=== PATIENT | female | born 1940 | race Caucasian/White ===

== ENCOUNTER 2018-12-05 16:40 | Emergency (ER) | payer MEDICARE ==
[2018-12-05 16:53] VITALS: BP 117/44
--- OUTSIDE RECORDS SUMMARY | 2018-12-05 17:00 | XMS REPORT | Continuity of Care Document ---
:1940 External Reference #:[id number] Author Name John Pinto Care Team Providers Name Role Phone Trino Weinstein MD Primary Care Physician Unavailable Payers Date Identification Numbers Payment Provider Subscriber Policy Number: [id number] [facility] Yolanda Gonzales Group Name: Medicare [address] [address] PayID: [id number] Attn: [place] [address] Advance Directives Description No Information Available Problems Date Description Provider Status Onset: 07/18/2016 Hyperlipidemia Active Onset: 07/18/2016 Essential hypertension Active Onset: 07/18/2016 Diabetes mellitus Active Onset: 07/18/2016 Gastroesophageal reflux disease Active Onset: 07/18/2016 Aneurysm Active Family History Date Family Member(s) Observation Comments Mother Thyroid Disease Siblings 2 Social History Type Date Description Comments Sex Unknown Marital Status Lives With ETOH Use Denies alcohol use Tobacco Use Start: Unknown End: Patient is a former smoker Recreational Drug Use Denies Drug Use Smoking Status Reviewed: 11/19/18 Patient is a former smoker Allergies, Adverse Reactions, Alerts Date Description Reaction Status Severity Comments 09/05/2018 Penicillins Active 09/05/2018 Pseudoephedrine Active Medications Medication Date Status Form Strength Qnty SIG Indications Ordering Provider Clobetasol 11/11 Active Ointment 0.05% 15uni apply to Trino ts Rt hand 3X [place]ellan weekly osMD Methylprednisolon 11/11 Active TBPK 4mg 1unit use as L20.9 Trino e s directed [place] osMD Betamethasone 10/22 Active Cream 0.05% 30gm use three L20.9 Trino Dipropionate /2019 times a Castellan day until os, clear Fluticasone 07/15 Active Suspension 50mcg/Act 16uni 2 puffs J30.9 Trino Propionate ts each nare Castellan every in os, the morning Levocetirizine 06/23 Active Tablets 5mg 30tab 1 every J30.9 Trino Dihydrochloride s day as Castellan needed os, MD Smith Ellipta 05/21 Active Aerosol 62.5-25mc 30uni 1 J44.9 g/Inh ts inhalation Castellan in the os, morning Albuterol Sulfate 05/21 Active Nebulizer (2.5mg/3M 100un 1 J44.9 L) 0.083% its applicatio Castellan n every 4 os, MD hours as needed Polyethylene 04/19 Active Powder 3350NF 357un 1 scoop m, K59.00 Trino Glycol 335 its w and f Josh casanova MD Glipizide ER 10/18 Active Tablets ER 5mg 90tab 1 by mouth E11.9 24HR s every day Josh casanova MD Ventolin HFA 10/05 Active Aerosol 108(90Bas 16uni 2 puffs J44.9 e) ts every 4 Castellan mcg/Act hours as os, needed Trulicity 10/05 Active Solution 0.75mg/0. 6unit inject E11.9 Pen-Inject 5ML s once a Castellan week (3 os, month supply) Ultram 09/19 Active Tablets 50mg 120ta take 1 M25.519 bs tablets Castellan every 4 os, MD hours along with one 325 mg tylenol as needed for pain Vitamin D3 07/18 Active Capsules 1000Unit 90cap 1 by mouth s every day Josh casanova MD Vitamin B-12 07/18 Active Tablets 1000mcg 30tab 1 by mouth s every day Josh casanova MD Rosuvastatin Active Tablets 20mg 90tab take one s tablet by [place] mouth MD jocelyne every day at supper Preservision Active Capsules Areds 2 1 by mouth Unknown Areds 2 two times per day Aspirin Active Tablets DR 81mg 1 by mouth Unknown / every day Refresh Tears Active Solution 0.5% Unknown /0000 Aquaphor Active Ointment Unknown / Ferrous Sulfate 00 Active Tablets 324(65Fe) Take One Unknown /0000 mg Tablet By Mouth Every Day Lantus Solostar Active Solution 100Unit/M 10 u a day Unknown / Pen-Inject L Glucosamine Active Capsules 500mg 2 tablets Unknown / daily Irbesartan-Hydroc Active Tablets 300-12.5m 1 by mouth Unknown hlorothiazide /0000 g every day by Dr Justin Denavir 07/15 Hx Cream 1% 5unit use every B00.1 s 2 hours Castellan - for 4 days os, 10/22 Omeprazole 03/13 Hx Capsules 20mg 90cap 1 by mouth K21.9 s every day Castellan - os, 10/22 Basaglgenevieve Ivyikchio 08/21 Hx Solution 100Unit/M 3unit 12 u in in E11.21 Pen-Inject L s the Castellan - morning os, 10/22 Eucrisa 01/23 Hx Ointment 2% 60gm use twice L30.9 a day Castellan - daily os, 10/22 Hydrocortisone 11/19 Hx Cream 1% 15uni use twice ts daily for Castellan - 1 week os, 06/04 Toujetitus Rees 11/19 Hx Solution 300Unit/M 4.500 10 u in E11.9 Pen-Inject L units the Castellan - morning os, 08/21 Clobetasol 11/06 Hx Ointment 0.05% 15uni apply to Trino ts hands 3X Castellan - weekly os, 11/19 Incruse Ellipta 10/22 Hx Aerosol 62.5mcg/I 30uni 1 puff J44.9 nh ts daily Castellan - os, 10/22 Spiriva Respimat 10/05 Hx Aerosol 2.5mcg/Ac 4unit 2 puffs J44.9 t s every in Castellan - the os, 10/22 Macrobid 07/24 Hx Capsules 100mg 20cap 1 by mouth N39.0 s twice a Castellan - day os, 09/25 Flovent Diskus 07/18 Hx Aerosol 100mcg/Bl 180un 1 puff ist its twice a Kayellan - day os, 10/05 Cyclobenzaprine Hx Tablets 10mg Take One Unknown HCL /0000 Tablet By - Mouth 09/25 Twice A Day as Needed For Spasms Albuterol Sulfate Hx Nebulizer (2.5mg/3M Inhale The Unknown / L) 0.083% Contents - Of One 09/25 Vial Nebulizer Every 4 To 6 Hours as NE Valsartan-Hydroch Hx Tablets 320-12.5m 90tab take one Trino lorothiazide / g s tablet by [place]ellan - mouth os, 04/[address] Hx Capsules [address] 40mg 90cap Stop This / s Medicine [place]ell[place]ike - MD jocelyne 03/13 Naproxen Hx Tablets 500mg Take One Unknown /0000 Tablet By - Mouth 10/05 Twice Day as Needed For Pain Take With Food Metformin HCL Hx Tablets 850mg 180ta take one Trino / bs tablet by Castellan - mouth os, 10/05 day Prednisone 00 Hx Tablets 20mg 1T PO bid Unknown / - 09/25 Clobetasol Hx Cream 0.05% 15uni apply to Trino Propionate /0000 ts hands 3 Castellan - x's weekly os, 11/06 Ciprofloxacin HCL 00 Hx Tablets 250mg Take One Unknown /0000 Tablet By - Mouth 11/19 Twice Day Glipizide Hx Tablets 5mg take one Unknown /0000 tablet by - mouth 10/21 twice day Immunizations CPT Code Status Date Vaccine Lot # [id number] Given 10/22/2018 Tdap - Tetanus/Diptheria/Acellular [id number] Pertussis [id number] Given 10/22/2018 Pneumococcal Conjugate Vaccine 13 Valent [id number] Prevnar 13 For Intramuscular Use Vital Signs Date Vital Result Comment 11/19/2018 2:53pm Weight 209.00 lb BP Systolic 122 mmHg BP Diastolic 66 mmHg 11/11/2018 2:13pm Weight 206.00 lb BP Systolic 130 mmHg irreg BP Diastolic 66 mmHg irreg 10/22/2018 1:20pm Height 57.5 inches 4'9.50" Weight 207.00 lb Heart Rate 74 /min BP Systolic 134 mmHg BP Diastolic 68 mmHg Respiratory Rate 16 /min O2 % BldC Oximetry 98 % BMI (Body Mass Index) 44.0 kg/m2 07/29/2018 9:32am Height 58 inches Weight 206.00 lb BP Systolic 124 mmHg BP Diastolic 64 mmHg BMI (Body Mass Index) 43.0 kg/m2 07/15/2018 3:38pm Weight 202.00 lb BP Systolic 122 mmHg BP Diastolic 80 mmHg 06/23/2018 2:45pm Weight 205.00 lb BP Systolic 122 mmHg BP Diastolic 62 mmHg 05/21/2018 2:01pm Weight 207.00 lb Heart Rate 64 /min BP Systolic 132 mmHg BP Diastolic 58 mmHg Respiratory Rate 18 /min 04/21/2018 11:01am Weight 204.00 lb BP Systolic 102 mmHg BP Diastolic 60 mmHg 03/13/2018 4:00pm Weight 206.00 lb Heart Rate 64 /min BP Systolic 134 mmHg BP Diastolic 60 mmHg Respiratory Rate 18 /min 01/20/2018 1:31pm Weight 203.00 lb Heart Rate 64 /min BP Systolic 104 mmHg BP Diastolic 54 mmHg Respiratory Rate 18 /min 10/21/2017 1:28pm Height 57.50 inches Weight 200.00 lb Heart Rate 64 /min BP Systolic 132 mmHg BP Diastolic 74 mmHg Respiratory Rate 16 /min BMI (Body Mass Index) 42.5 kg/m2 08/21/2017 3:10pm Weight 200.00 lb BP Systolic 112 mmHg BP Diastolic 56 mmHg 05/28/2017 1:56pm Weight 204.00 lb BP Systolic 114 mmHg BP Diastolic 58 mmHg 04/19/2017 11:09am Weight 200.00 lb BP Systolic 130 mmHg BP Diastolic 68 mmHg 03/28/2017 2:55pm Weight 204.00 lb BP Systolic 110 mmHg BP Diastolic 56 mmHg 02/25/2017 2:46pm Height 57.5 inches Weight 202.00 lb BP Systolic 110 mmHg BP Diastolic 62 mmHg BMI (Body Mass Index) 43.0 kg/m2 01/23/2017 2:43pm Weight 200.00 lb BP Systolic 106 mmHg BP Diastolic 62 mmHg 01/09/2017 3:16pm Weight 200.50 lb BP Systolic 100 mmHg BP Diastolic 66 mmHg 12/03/2016 1:36pm Height 57.50 inches Weight 200.50 lb BP Systolic 130 mmHg BP Diastolic 70 mmHg BMI (Body Mass Index) 42.6 kg/m2 11/19/2016 2:45pm Weight 200.00 lb BP Systolic 152 mmHg BP Diastolic 72 mmHg 10/18/2016 1:04pm Height 57.50 inches Weight 198.00 lb Heart Rate 100 /min BP Systolic 91763 mmHg Respiratory Rate 16 /min Body Temperature 98.5 F BMI (Body Mass Index) 42.1 kg/m2 10/05/2016 10:31am Weight 200.00 lb BP Systolic 112 mmHg BP Diastolic 60 mmHg 09/25/2016 3:34pm BP Systolic 100 mmHg BP Diastolic 60 mmHg Body Temperature 97.8 F 09/19/2016 3:39pm Weight 205.00 lb BP Systolic 144 mmHg BP Diastolic 70 mmHg Body Temperature 98.8 F 07/24/2016 3:15pm Weight 202.00 lb BP Systolic 100 mmHg BP Diastolic 68 mmHg 07/18/2016 2:42pm Height 58.75 inches Weight 198.00 lb BP Systolic 120 mmHg BP Diastolic 76 mmHg BMI (Body Mass Index) 40.3 kg/m2 Results Test Date Facility Test Result H/L Range Note Laboratory test 07/21/2018 N2N/CCD Import Glycohemoglobin 7.7 % High 4.2- 6.3 1, 2 finding (A1c) eAG 174 mg/dL Comprehensive Metabolic Panel 07/21/2018 N2N/CCD Import Alb/Glob 0.7 ratio Albumin 3.2 g/dL Low 3.4-5 Alkaline Phosphatase 116 U/L 45-117 Anion Gap 9 mEq/L 8-16 BUN 32 mg/dL High 7-18 BUN/Creat 22.8 ratio Bilirubin,Total 0.2 mg/dL 0.2-1 Calcium 9.1 mg/dL 8.5-10.1 Carbon Dioxide 23 mmol/L 21-32 Chloride 111 mmol/L High 98-107 Creatinine 1.4 mg/dL High 0.6-1.3 Globulin 4.6 g/dL High 1.9-4.3 Glom Filtration Rate, Estimate 39 mL/min Glucose 156 mg/dL High 74-106 If 47 mL/min 3 Potassium 3.9 mmol/L 3.5-5.1 SGPT/Alt 26 U/L 12-78 Sgot/Ast 20 U/L 15-37 Sodium 143 mmol/L 136-145 Total Protein 7.8 g/dL 6.4-8.2 Microalbumin,Random 07/21/2018 N2N/CCD Import Microalbumin,Urine 27.5 Urine mg/L Laboratory test finding 05/20/2018 N2N/CCD Import Troponin-I < 0.015 4 , 5 ng/mL Laboratory test finding 05/20/2018 N2N/CCD Import Troponin-I < 0.015 6 ng/mL CBS W/Automated Diff 05/20/2018 N2N/CCD Import Bas% 0.2 % 0-1. 1 Baso # 0.02 K/uL 0-0.1 Eo% 3.4 % 0-6.6 Eos # 0.29 K/uL 0-0.5 Hematocrit 35.1 % Low 36-46.1 Hemoglobin 11.3 gm/dL Low 11.6-15.8 Lymph # 1.57 K/uL 1-4 Lymph % 18.5 % Low 20-42 Mean Cell Volume 93.6 fl 80.9-99 Mean Corpuscular HGB 30.1 pg 25.9-32.7 Mean Corpuscular HGB Conc 32.2 g/dL 30.8-34.3 Mean Platelet Volume 11.3 fL 8.9-12.4 [place] # 0.45 K/uL 0.3-0.9 [place] % 5.3 % 4.3-13.2 Neut# 6.16 K/uL 1.8-7 Neut% 72.6 % 40.4-72.8 Platelet Count 195 K/uL 155-360 Red Blood Count 3.75 M/uL Low 3.9-5.4 Red Cell Distri Width %CV 15.3 % High 11.7-14.4 Red Cell Distri Width SD 50.0 fl High 3-47 White Blood Count 8.5 K/uL 3.1-10.7 Comprehensive Metabolic Panel 05/20/2018 N2N/CCD Import Alb/Glob 0.7 ratio Albumin 3.1 g/dL Low 3.4-5 Alkaline Phosphatase 109 U/L 45-117 Anion Gap 7 mEq/L Low 8-16 BUN 33 mg/dL High 7-18 BUN/Creat 23.5 ratio Bilirubin,Total 0.2 mg/dL 0.2-1 Calcium 9.4 mg/dL 8.5-10.1 Carbon Dioxide 26 mmol/L 21-32 Chloride 110 mmol/L High 98-107 Creatinine 1.4 mg/dL High 0.6-1.3 Globulin 4.3 g/dL 1.9-4.3 Glom Filtration Rate, Estimate 39 mL/min Glucose 241 mg/dL High 74-106 If 47 mL/min 7 Potassium 4.0 mmol/L 3.5-5.1 SGPT/Alt 25 U/L 12-78 Sgot/Ast 14 U/L Low 15-37 8 Sodium 143 mmol/L 136-145 Total Protein 7.4 g/dL 6.4-8.2 Laboratory test 04/15/2018 N2N/CCD Import Glycohemoglobin 7.8 % High 4.2- 6.3 9, 10 finding (A1c) Reflex add FT3? Y Reflex add FT4? Y Thyroid Stim Hormone 2.13 uIU/mL 0.3-4.2 eAG 177 mg/dL CBC 04/15/2018 N2N/CCD Import Hematocrit 36.9 % 36-46.1 Hemoglobin 12.2 gm/dL 11.6-15.8 Mean Cell Volume 91.1 fl 80.9-99 Mean Corpuscular HGB 30.1 pg 25.9-32.7 Mean Corpuscular HGB Conc 33.1 g/dL 30.8-34.3 Mean Platelet Volume 11.1 fL 8.9-12.4 Platelet Count 204 K/uL 155-360 Red Blood Count 4.05 M/uL 3.9-5.4 Red Cell Distri Width %CV 15.0 % High 11.7-14.4 White Blood Count 9.0 K/uL 3.1-10.7 Comprehensive Metabolic Panel 04/15/2018 N2N/CCD Import Alb/Glob 0.8 ratio Albumin 3.2 g/dL Low 3.4-5 Alkaline Phosphatase 100 U/L 45-117 Anion Gap 9 mEq/L 8-16 BUN 43 mg/dL High 7-18 BUN/Creat 33.0 ratio Bilirubin,Total 0.2 mg/dL 0.2-1 Calcium 10.1 mg/dL 8.5-10.1 Carbon Dioxide 25 mmol/L 21-32 Chloride 110 mmol/L High 98-107 Creatinine 1.3 mg/dL 0.6-1.3 Globulin 4.2 g/dL 1.9-4.3 Glom Filtration Rate, Estimate 42 mL/min Glucose 163 mg/dL High 74-106 If 51 mL/min 11 Potassium 4.0 mmol/L 3.5-5.1 Reflex add FT3? Y Reflex add FT4? Y SGPT/Alt 27 U/L 12-78 Sgot/Ast 23 U/L 15-37 Sodium 144 mmol/L 136-145 Total Protein 7.4 g/dL 6.4-8.2 Iron-Tibc-%Sat 04/15/2018 N2N/CCD Import Reflex add FT3? Y Reflex add FT4? Y Serum Iron 56 g/dL 50-170 Total Iron Binding Capacity 260 g/dL 250-450 Transferrin %Saturation 22 % 12-57 LDL Cholesterol Profile 04/15/2018 N2N/CCD Import Cholesterol 159 mg/dL 12 HDL Cholesterol 44 mg/dL 13 LDL-Cholesterol 51 mg/dL 14 Reflex add FT3? Y Reflex add FT4? Y Triglycerides 321 mg/dL High 15 Microalbumin,Random 04/15/2018 N2N/CCD Import Microalbumin,Urine 11.0 Urine mg/L Vitamin B12 And Folate 04/15/2018 N2N/CCD Import Folic Acid > 20.0 High 3.1- ng/mL 17.5 Reflex add FT3? Y Reflex add FT4? Y Vitamin B12 1352 pg/mL High 193-986 Laboratory test finding 01/13/2018 N2N/CCD Import Ferritin 65 ng/mL 8- 252 16 Glycohemoglobin (A1c) 7.7 % High 4.2-6.3 17 TSH Reflex FT4 and/or FT3 2.91 uIU/mL 0.3-4.2 eAG 174 mg/dL CBC 01/13/2018 N2N/CCD Import Hematocrit 37.0 % 36-46.1 Hemoglobin 11.8 gm/dL 11.6-15.8 Mean Cell Volume 92.5 fl 80.9-99 Mean Corpuscular HGB 29.5 pg 25.9-32.7 Mean Corpuscular HGB Conc 31.9 g/dL 30.8-34.3 Mean Platelet Volume 11.7 fL 8.9-12.4 Platelet Count 200 K/uL 155-360 Red Blood Count 4.00 M/uL 3.9-5.4 Red Cell Distri Width %CV 15.9 % High 11.7-14.4 White Blood Count 10.0 K/uL 3.1-10.7 Comprehensive Metabolic Panel 01/13/2018 N2N/[employer] Import Alb/Glob 0.8 ratio Albumin 3.1 g/dL Low 3.4-5 Alkaline Phosphatase 98 U/L 45-117 Anion Gap 11 mEq/L 8-16 BUN 26 mg/dL High 7-18 BUN/Creat 20.0 ratio Bilirubin,Total 0.3 mg/dL 0.2-1 Calcium 9.3 mg/dL 8.5-10.1 Carbon Dioxide 21 mmol/L 21-32 Chloride 109 mmol/L High 98-107 Creatinine 1.3 mg/dL 0.6-1.3 Globulin 4.1 g/dL 1.9-4.3 Glom Filtration Rate, Estimate 42 mL/min Glucose 167 mg/dL High 74-106 If 51 mL/min 18 Potassium 3.8 mmol/L 3.5-5.1 SGPT/Alt 24 U/L 12-78 Sgot/Ast 20 U/L 15-37 Sodium 141 mmol/L 136-145 Total Protein 7.2 g/dL 6.4-8.2 Iron-Tibc-%Sat 01/13/2018 [facility] Import Serum Iron 85 g/dL 50-170 Total Iron Binding Capacity 258 g/dL 250-450 Transferrin %Saturation 33 % 12-57 LDL Cholesterol Profile 01/13/2018 N2N/[employer] Import Cholesterol 159 mg/dL 19 HDL Cholesterol 45 mg/dL 20 LDL-Cholesterol 47 mg/dL 21 Triglycerides 334 mg/dL High 22 Laboratory test 10/15/2017 N2N/[employer] Import Glycohemoglobin 7.6 % High 4.2- 6.3 23, 24 finding (A1c) eAG 171 mg/dL Comprehensive Metabolic Panel 10/15/2017 N2N/[employer] Import Alb/Glob 0.7 ratio Albumin 3.1 g/dL Low 3.4-5 Alkaline Phosphatase 105 U/L 45-117 Anion Gap 7 mEq/L Low 8-16 BUN 24 mg/dL High 7-18 BUN/Creat 21.8 ratio Bilirubin,Total 0.2 mg/dL 0.2-1 Calcium 9.6 mg/dL 8.5-10.1 Carbon Dioxide 24 mmol/L 21-32 Chloride 109 mmol/L High 98-107 Creatinine 1.1 mg/dL 0.6-1.3 Globulin 4.5 g/dL High 1.9-4.3 Glom Filtration Rate, Estimate 51 mL/min Glucose 143 mg/dL High 74-106 If >60 mL/min 25 Potassium 4.0 mmol/L 3.5-5.1 SGPT/Alt 27 U/L 12-78 Sgot/Ast 22 U/L 15-37 Sodium 140 mmol/L 136-145 Total Protein 7.6 g/dL 6.4-8.2 LDL Cholesterol Profile 10/15/2017 N2N/[employer] Import Cholesterol 167 mg/dL 26 HDL Cholesterol 49 mg/dL 27 LDL-Cholesterol 46 mg/dL 28 Triglycerides 360 mg/dL High 29 Microalbumin,Random 10/15/2017 N2N/[employer] Import Microalbumin,Urine 39.4 Urine mg/L Laboratory test finding 08/13/2017 N2N/[employer] Import Glycohemoglobin (A1c) 7.6 % High 4.2 30, -6. 31 3 eAG 171 mg/dL Comprehensive Metabolic Panel 08/13/2017 N2N/[employer] Import Alb/Glob 0.6 ratio Albumin 2.8 g/dL Low 3.4-5 Alkaline Phosphatase 105 U/L 45-117 Anion Gap 10 mEq/L 8-16 BUN 33 mg/dL High 7-18 BUN/Creat 27.5 ratio Bilirubin,Total 0.2 mg/dL 0.2-1 Calcium 10.1 mg/dL 8.5-10.1 Carbon Dioxide 24 mmol/L 21-32 Chloride 110 mmol/L High 98-107 Creatinine 1.2 mg/dL 0.6-1.3 Globulin 4.9 g/dL High 1.9-4.3 Glom Filtration Rate, Estimate 47 mL/min Glucose 138 mg/dL High 74-106 If 56 mL/min 32 Potassium 4.1 mmol/L 3.5-5.1 SGPT/Alt 40 U/L 12-78 Sgot/Ast 24 U/L 15-37 Sodium 144 mmol/L 136-145 Total Protein 7.7 g/dL 6.4-8.2 Laboratory test 03/01/2017 N2N/[employer] Import Glycohemoglobin 7.4 % High 4.2- 6.3 33, 34 finding (A1c) eAG 166 mg/dL Laboratory test 11/28/2016 N2N/CCD Import Glycohemoglobin (A1c) 6.7 % High 4.2-6.3 35 finding eAG 146 mg/dL Imaging finding 11/06/2016 N2N/CCD Import Bone Density <pending> Mammogram bilateral cancer screening <pending> Imaging finding 10/05/2016 N2N/CCD Import Chest Xray PA <pending> and Lat Comprehensive Metabolic 10/05/2016 N2N/CCD Import Alb/Glob 0.7 ratio 36 Panel Albumin 3.3 g/dL Low 3.4-5 Alkaline Phosphatase 115 U/L 45-117 Anion Gap 11 mEq/L 8-16 BUN 30 mg/dL High 7-18 BUN/Creat 20.0 ratio Bilirubin,Total 0.1 mg/dL Low 0.2-1 Calcium 10.2 mg/dL High 8.5-10.1 Carbon Dioxide 25 mmol/L 21-32 Chloride 108 mmol/L High 98-107 Creatinine 1.5 mg/dL High 0.6-1.3 Globulin 4.8 g/dL High 1.9-4.3 Glom Filtration Rate, Estimate 36 mL/min Glucose 203 mg/dL High 74-106 If 44 mL/min 37 Potassium 4.0 mmol/L 3.5-5.1 SGPT/Alt 33 U/L 12-78 Sgot/Ast 27 U/L 15-37 Sodium 144 mmol/L 136-145 Total Protein 8.1 g/dL 6.4-8.2 Laboratory test 10/05/2016 N2N/CCD Import Glycohemoglobin (A1c) 10.2 % High 4.2-6.3 38 finding eAG 246 mg/dL Imaging finding 09/27/2016 N2N/CCD Import pulmonary function <pending> test Laboratory test 07/25/2016 N2N/CCD Import Ampicillin 8 1 S finding Ampicillin/Sulbactam 8 1 S Cefazolin <=4 S Cefepime <=1 S Ceftazidime <=1 S Ceftriaxone <=1 S Ciprofloxacin >=4 R Gentamicin <=1 S Imipenem <=0.25 S Levofloxacin >=8 R Nitrofurantoin <=16 S Piperacillin/Tazobactam <=4 S Tobramycin <=1 S Trimethoprim/Sulfamethoxazole >=320 R Urinalysis With 07/25/2016 N2N/CCD Import Source: Urine, Clean Cat 39 Microscopic <See Note> Urine Bacteria Many Abnormal Urine Bilirubin - Dipstick Negative Urine Blood Moderate Abnormal Urine Clarity Cloudy Urine Color Yellow Urine Epithelial Cells Few /lpf Urine Glucose - Dipstick Negative mg/dL Urine Ketone Negative mg/dL Urine Leuk Esterase Moderate Abnormal Urine Nitrite - Dipstick Negative Urine PH 5.5 1 Low 6.5-7.5 Urine Protein - Dipstick 30 mg/dL High Urine RBC 0-2 rbc/hpf 0-2 Urine Specific [place] >=1.030 1.01-1.03 Urine Urobilinogen - Dipstick 0.2 E.U./dL 0.2-1 Urine WBC > 50 wbc/hpf High 0-7 Urine Culture 07/25/2016 [employer] [facility] Import Quantity 10,000 - 50,000 <See Note > 40 Quantity > 100,000 Cfu/mL 41 Recommended Therapy: Penicillin Or Am <See Note> 42 Urine Culture Beta Streptococc <See Note> Abnormal 43 Urine Culture Escherichia Coli Abnormal 44 Laboratory test 07/19/2016 [employer] [facility] Import Glycohemoglobin 9.3 % High 4.2- 6.3 45, 46 finding (A1c) eAG 220 mg/dL CBC 07/19/2016 [email or web address] Import Hematocrit 34.2 % Low 36-46.1 Hemoglobin 11.3 gm/dL Low 11.6-15.8 Mean Cell Volume 85.5 fl 80.9-99 Mean Corpuscular HGB 28.3 pg 25.9-32.7 Mean Corpuscular HGB Conc 33.0 g/dL 30.8-34.3 Mean Platelet Volume 11.0 fL 8.9-12.4 Platelet Count 391 K/uL High 155-360 Red Blood Count 4.00 M/uL 3.9-5.4 Red Cell Distri Width %CV 15.9 % High 11.7-14.4 White Blood Count 15.2 K/uL High 3.1-10.7 Comprehensive Metabolic Panel 07/19/2016 [employer] [facility] Import Alb/Glob 0.7 ratio Albumin 3.1 g/dL Low 3.4-5 Alkaline Phosphatase 117 U/L 45-117 Anion Gap 12 mEq/L 8-16 BUN 46 mg/dL High 7-18 BUN/Creat 25.5 ratio Bilirubin,Total 0.3 mg/dL 0.2-1 Calcium 9.4 mg/dL 8.5-10.1 Carbon Dioxide 24 mmol/L 21-32 Chloride 100 mmol/L 98-107 Creatinine 1.8 mg/dL High 0.6-1.3 Globulin 4.6 g/dL High 1.9-4.3 Glom Filtration Rate, Estimate 29 mL/min Glucose 262 mg/dL High 74-106 If 35 mL/min 47 Potassium 4.4 mmol/L 3.5-5.1 SGPT/Alt 63 U/L 12-78 Sgot/Ast 36 U/L 15-37 Sodium 136 mmol/L 136-145 Total Protein 7.7 g/dL 6.4-8.2 LDL Cholesterol Profile 07/19/2016 N2N/CCD Import Cholesterol 178 mg/dL 48 HDL Cholesterol 58 mg/dL 49 LDL-Cholesterol TNP mg/dL 50 Triglycerides 460 mg/dL High 51 Microalbumin,Random 07/19/2016 N2N/CCD Import Microalbumin,Urine 365.0 mg/ L High Urine 1 E11.21 M25.551 2 Elevated levels of HbA1c suggest the need for more aggressive treatment of glycemia. The [place] [employer] recommends that a primary goal of therapy should be a HbA1c of <7% and that physicians should re-evaluate the treatment regimen in patients with HbA1c values consistently >8%. 3 Note: Persistent reduction for 3 months or more in an eGFR <60 mL/min/1.73 m2 defines CKD. Patients with eGFR values >/=60 mL/min/1.73 m2 may also have CKD if evidence of persistent proteinuria is present. The original MDRD equation for estimated GFR is not valid for patients less than 18 years of age. Additional information may be found at www.[email or web address]. 4 CP, SOB, WEAKNESS 5 0.0 - 0.045 ng/mL: Normal 0.046 - 0.5 ng/mL: Suggestive 0.6 - 1.5 ng/mL: Consistent 6 0.0 - 0.045 ng/mL: Normal 0.046 - 0.5 ng/mL: Suggestive 0.6 - 1.5 ng/mL: Consistent 7 Note: Persistent reduction for 3 months or more in an eGFR <60 mL/min/1.73 m2 defines CKD. Patients with eGFR values >/=60 mL/min/1.73 m2 may also have CKD if evidence of persistent proteinuria is present. The original MDRD equation for estimated GFR is not valid for patients less than 18 years of age. Additional information may be found at [email or web address]. 8 Values below the stated reference ranges of AST and ALT can be seen in normal populations. Clinical correlation is suggested. 9 E11.21 E78.5 D64.9 Z68.41 10 Elevated levels of HbA1c suggest the need for more aggressive treatment of glycemia. The [place] [employer] recommends that a primary goal of therapy should be a HbA1c of <7% and that physicians should re-evaluate the treatment regimen in patients with HbA1c values consistently >8%. 11 Note: Persistent reduction for 3 months or more in an eGFR <60 mL/min/1.73 m2 defines CKD. Patients with eGFR values >/=60 mL/min/1.73 m2 may also have CKD if evidence of persistent proteinuria is present. The original MDRD equation for estimated GFR is not valid for patients less than 18 years of age. Additional information may be found at [email or web address]. 12 Reference Guidelines*: Desirable: ........... < 200 mg/dL Borderline High: ..... 200-239 mg/dL High: ................ >=240 mg/dL * The National Cholesterol Education Program (NCEP) 13 Reference Guidelines*: Low HDL: ..... < 40 mg/dL Normal: ..... 40-60 mg/dL Desirable: ... > 60 mg/dL *The National Cholesterol Education Program(NCEP) 14 Reference Guidelines*: Optimal:........... <100 mg/dL Near Optimal....... 100-129 mg/dL Borderline High.... 130-159 mg/dL High............... 160-189 mg/dL Very High.......... >=190 mg/dL * Source: National Cholesterol Education Program (NCEP) 15 Reference Guidelines*: Normal: ............. < 150 mg/dL Borderline High: .... 150-199 mg/dL High: ............... 200-499 mg/dL Very High: .......... > 500 mg/dL * Source: National Cholesterol Education Program (NCEP) 16 E11.21, E78.5, D64.9, Z68.41 17 Elevated levels of HbA1c suggest the need for more aggressive treatment of glycemia. The [place] [employer] recommends that a primary goal of therapy should be a HbA1c of <7% and that physicians should re-evaluate the treatment regimen in patients with HbA1c values consistently >8%. 18 Note: Persistent reduction for 3 months or more in an eGFR <60 mL/min/1.73 m2 defines CKD. Patients with eGFR values >/=60 mL/min/1.73 m2 may also have CKD if evidence of persistent proteinuria is present. The original MDRD equation for estimated GFR is not valid for patients less than 18 years of age. Additional information may be found at www.kdoqi.org. 19 Reference Guidelines*: Desirable: ........... < 200 mg/dL Borderline High: ..... 200-239 mg/dL High: ................ >=240 mg/dL * The National Cholesterol Education Program (NCEP) 20 Reference Guidelines*: Low HDL: ..... < 40 mg/dL Normal: ..... 40-60 mg/dL Desirable: ... > 60 mg/dL *The National Cholesterol Education Program(NCEP) 21 Reference Guidelines*: Optimal:........... <100 mg/dL Near Optimal....... 100-129 mg/dL Borderline High.... 130-159 mg/dL High............... 160-189 mg/dL Very High.......... >=190 mg/dL * Source: National Cholesterol Education Program (NCEP) 22 Reference Guidelines*: Normal: ............. < 150 mg/dL Borderline High: .... 150-199 mg/dL High: ............... 200-499 mg/dL Very High: .......... > 500 mg/dL * Source: National Cholesterol Education Program (NCEP) 23 E11.21 E78.5 24 Elevated levels of HbA1c suggest the need for more aggressive treatment of glycemia. The [place] [employer] recommends that a primary goal of therapy should be a HbA1c of <7% and that physicians should re-evaluate the treatment regimen in patients with HbA1c values consistently >8%. 25 Note: Persistent reduction for 3 months or more in an eGFR <60 mL/min/1.73 m2 defines CKD. Patients with eGFR values >/=60 mL/min/1.73 m2 may also have CKD if evidence of persistent proteinuria is present. The original MDRD equation for estimated GFR is not valid for patients less than 18 years of age. Additional information may be found at www.kdoqi.org. 26 Reference Guidelines*: Desirable: ........... < 200 mg/dL Borderline High: ..... 200-239 mg/dL High: ................ >=240 mg/dL * The National Cholesterol Education Program (NCEP) 27 Reference Guidelines*: Low HDL: ..... < 40 mg/dL Normal: ..... 40-60 mg/dL Desirable: ... > 60 mg/dL *The National Cholesterol Education Program(NCEP) 28 Reference Guidelines*: Optimal:........... <100 mg/dL Near Optimal....... 100-129 mg/dL Borderline High.... 130-159 mg/dL High............... 160-189 mg/dL Very High.......... >=190 mg/dL * Source: National Cholesterol Education Program (NCEP) 29 Reference Guidelines*: Normal: ............. < 150 mg/dL Borderline High: .... 150-199 mg/dL High: ............... 200-499 mg/dL Very High: .......... > 500 mg/dL * Source: National Cholesterol Education Program (NCEP) 30 E11.21 31 Elevated levels of HbA1c suggest the need for more aggressive treatment of glycemia. The [place] [employer] recommends that a primary goal of therapy should be a HbA1c of <7% and that physicians should re-evaluate the treatment regimen in patients with HbA1c values consistently >8%. 32 Note: Persistent reduction for 3 months or more in an eGFR <60 mL/min/1.73 m2 defines CKD. Patients with eGFR values >/=60 mL/min/1.73 m2 may also have CKD if evidence of persistent proteinuria is present. The original MDRD equation for estimated GFR is not valid for patients less than 18 years of age. Additional information may be found at www.kdoqi.org. 33 E11.9 34 Elevated levels of HbA1c suggest the need for more aggressive treatment of glycemia. The [place] [employer] recommends that a primary goal of therapy should be a HbA1c of <7% and that physicians should re-evaluate the treatment regimen in patients with HbA1c values consistently >8%. 35 Elevated levels of HbA1c suggest the need for more aggressive treatment of glycemia. The [place] [employer] recommends that a primary goal of therapy should be a HbA1c of <7% and that physicians should re-evaluate the treatment regimen in patients with HbA1c values consistently >8%. 36 J44.9 E11.9 37 Note: Persistent reduction for 3 months or more in an eGFR <60 mL/min/1.73 m2 defines CKD. Patients with eGFR values >/=60 mL/min/1.73 m2 may also have CKD if evidence of persistent proteinuria is present. The original MDRD equation for estimated GFR is not valid for patients less than 18 years of age. Additional information may be found at www.kdoqi.org. 38 Elevated levels of HbA1c suggest the need for more aggressive treatment of glycemia. The [place] [employer] recommends that a primary goal of therapy should be a HbA1c of <7% and that physicians should re-evaluate the treatment regimen in patients with HbA1c values consistently >8%. 39 URINE, CLEAN CATCH 40 10,000 - 50,000 CFU/mL 41 > 100,000 CFU/mL 42 PENICILLIN OR AMPICILLIN. 43 BETA STREPTOCOCCUS GROUP B 44 ESCHERICHIA COLI 45 E11.9 46 Elevated levels of HbA1c suggest the need for more aggressive treatment of glycemia. The [place] [employer] recommends that a primary goal of therapy should be a HbA1c of <7% and that physicians should re-evaluate the treatment regimen in patients with HbA1c values consistently >8%. 47 Note: Persistent reduction for 3 months or more in an eGFR <60 mL/min/1.73 m2 defines CKD. Patients with eGFR values >/=60 mL/min/1.73 m2 may also have CKD if evidence of persistent proteinuria is present. The original MDRD equation for estimated GFR is not valid for patients less than 18 years of age. Additional information may be found at www.kdoqi.org. 48 Reference Guidelines*: Desirable: ........... < 200 mg/dL Borderline High: ..... 200-239 mg/dL High: ................ >=240 mg/dL * The National Cholesterol Education Program (NCEP) 49 Reference Guidelines*: Low HDL: ..... < 40 mg/dL Normal: ..... 40-60 mg/dL Desirable: ... > 60 mg/dL *The National Cholesterol Education Program(NCEP) 50 (LDL CANNOT BE CALCULATED FOR TRIGS >400 mg/dL) 51 Reference Guidelines*: Normal: ............. < 150 mg/dL Borderline High: .... 150-199 mg/dL High: ............... 200-499 mg/dL Very High: .......... > 500 mg/dL * Source: National Cholesterol Education Program (NCEP) Procedures Date Code Description Status 11/13/2018 [id number] Mammogram Completed 03/11/2018 [id number] Diabetic Retinal Eye Exam Completed 11/06/2016 81299 Bone Density Study, Single Photon Absorptiometry Completed 11/06/2016 35998 Mammography Unilateral Completed 11/06/2016 [id number] Mammogram Completed 11/22/2015 [id number] Colonoscopy Completed Encounters Type Date Location Provider Dx Diagnosis Office Visit 11/11/2018 [facility] Trino M79.642 Pain in left hand 2:00p MD Js L20.9 Atopic dermatitis, unspecified Z12.31 Encntr screen mammogram for malignant neoplasm of breast Office Visit 10/22/2018 1:00p [facility] Trino Weinstein, Z00.01 Encounter for Care general adult medical exam w abnormal findings E11.9 Type 2 diabetes mellitus without complications J44.9 Chronic obstructive pulmonary disease, unspecified K21.9 Gastro-esophageal reflux disease without esophagitis L20.9 Atopic dermatitis, unspecified E78.5 Hyperlipidemia, unspecified I10 Essential (primary) hypertension Z23 Encounter for immunization Plan of Treatment Future Appointment(s):02/19/2019 10:45 am - Trino Weinstein MD at [facility]11/19/2018 - Trino Weinstein MDL20.9 Atopic dermatitis, unspecifiedFollow up:3 hrmmcsP94.642 Pain in left hand
--- OUTSIDE RECORDS SUMMARY | 2018-12-05 17:00 | XMS REPORT | Continuity of Care Document ---
:1940 External Reference #:[id number] Author Name John Pinto Care Team Providers Name Role Phone Trino Weinstein MD Primary Care Physician Unavailable Payers Date Identification Numbers Payment Provider Subscriber Policy Number: [id number] [facility] Options Yolanda Gonzales Group Name: Medicare [address] [address] PayID: [id number] Attn: [place] [address] Advance Directives Description No Information Available Problems [...] Use Denies Drug Use Smoking Status Reviewed: 12/02/18 Patient is a former smoker Allergies, Adverse Reactions, Alerts Date Description Reaction Status Severity Comments 09/05/2018 Penicillins Active 09/05/2018 Pseudoephedrine Active Medications Medication Date Status Form Strength Qnty SIG Indications Ordering Provider Wrist Brace 12/02 Active Misc 1unit use daily M25.532 Trino Ultra-Lite Carpal /2018 s Lt hand [place] Tunnel/One Size osMD Clobetasol 11/11 Active Ointment 0.05% 15uni apply to Trino Propionate ts Rt hand 3X Castellan weekly os, Methylprednisolon 11/11 Active TBPK 4mg 1unit use as L20.9 Trino e s directed [place] osMD Betamethasone 10/22 Active Cream 0.05% 30gm use three L20.9 Trino Dipropionate /2019 times a Castellan day until os, clear Fluticasone 07/15 Active Suspension 50mcg/Act 16uni 2 puffs J30.9 Trino Propionate ts each nare Castellan every in os, the morning Levocetirizine 06/23 Active Tablets 5mg 30tab 1 every J30.9 Trino Dihydrochloride 2018 s day as Castellan needed os, MD Smith Ellipta 05/21 Active Aerosol 62.5-25mc 30uni 1 J44.9 g/Inh ts inhalation Castellan in the os, morning Albuterol Sulfate 05/21 Active Nebulizer (2.5mg/3M 100un 1 J44.9 L) 0.083% its applicatio Castellan n every 4 os, hours as needed Polyethylene 04/19 Active Powder 3350NF 357un 1 scoop m, K59.00 Trino Glycol 3350 /2016 its w and f Kayellamike casanova MD Glipizide ER 10/18 Active Tablets ER 5mg 90tab 1 by mouth E11.9 24HR s every day Kayellamike osMD Ventolin HFA 10/05 Active Aerosol 108(90Bas 16uni 2 puffs J44.9 e) ts every 4 Castellan mcg/Act hours as osMD needed Trulicity 10/05 Active Solution 0.75mg/0. 6ml inject E11.9 Pen-Inject 5ML once a Castellan week (3 os, month [...] 20mg 90tab take one s tablet by Castellan mouth osMD every day at supper Preservision Active Capsules Areds 2 1 by mouth Unknown Areds two times per day Aspirin Active Tablets DR 81mg 1 by mouth every day Refresh Tears Active Solution 0.5% Unknown Aquaphor Active Ointment Unknown Ferrous Sulfate Active Tablets 324(65Fe) Take One Unknown / mg Tablet By Mouth Every Day Lantus Solostar Active Solution 100Unit/M 10 u a day Unknown Pen-Inject L Glucosamine Active Capsules 500mg 2 tablets Unknown / daily Irbesartan-Hydroc Active Tablets 300-12.5m 1 by mouth Unknown hlorothiazide /0000 g every day by Dr Justin Denavir 07/15 Hx Cream 1% 5unit use every B00.1 s 2 hours Castellan - for 4 days os, 10/22 Omeprazole 03/[address] 20mg 90cap 1 by mouth K21.9 s every day Castellan - os, 10/22 Basaglgenevieve Johnson 08/21 Hx Solution 100Unit/M 3unit 12 u in in E11.21 Pen-Inject L s the Castellan - morning os, 10/22 Eucrisa 01/23 Hx Ointment 2% 60gm use twice L30.9 a day Castellan - daily os, 10/22 Hydrocortisone 11/19 Hx Cream 1% 15uni use twice ts daily for Castellan - 1 week os, 06/04 Antoninoukedar Rees 11/19 Hx Solution 300Unit/M 4.500 10 [...] 2 puffs J44.9 t [facility], 10/22 Macrobid 07/24 Hx Capsules 100mg 20cap 1 by mouth N39.0 s twice a Castellan - day os, 09/25 Flovent Diskus 07/18 Hx Aerosol 100mcg/Bl 180un 1 puff ist its twice a Kayellan - day os, 10/05 Cyclobenzaprine Hx Tablets 10mg Take One Unknown HCL /0000 Tablet By - Mouth 09/25 Twice Day as Needed For Spasms Albuterol Sulfate Hx Nebulizer (2.5mg/3M Inhale The Unknown / L) 0.083% Contents - Of One 09/25 Vial Nebulizer Every 4 To 6 Hours as NE Valsartan-Hydroch Hx Tablets 320-12.5m 90tab take one Trino lorothiazide / g s tablet by Castellan - mouth os, 04/[address] 40mg 90cap Stop This s Medicine Josh - MD jocelyne 03/13 Naproxen Hx Tablets 500mg Take One Unknown /0000 Tablet By - Mouth 10/05 Twice Day as Needed For Pain Take With Food Metformin HCL 00 Hx Tablets 850mg 180ta take one Trino / bs tablet by Castellan - mouth MD jocelyne 10/05 twice day Prednisone Hx Tablets 20mg 1T PO bid Unknown / - 09/25 Clobetasol 00 Hx Cream 0.05% 15uni apply to Trino Propionate /0000 ts hands 3 Castellan - x's weekly os, 11/06 Ciprofloxacin HCL 00 Hx Tablets 250mg Take One Unknown /0000 Tablet By - Mouth 11/19 Twice Day Glipizide Hx Tablets 5mg take one Unknown /0000 tablet by - mouth 10/21 twice day Immunizations CPT Code Status Date Vaccine Lot # [id number] Given 10/22/2018 Tdap - Tetanus/Diptheria/Acellular [id number] Pertussis [id number] Given 10/22/2018 Pneumococcal Conjugate Vaccine 13 Valent [id number] Prevnar 13 For Intramuscular Use Vital Signs Date Vital Result Comment 12/02/2018 2:23pm Weight 214.00 lb BP Systolic 142 mmHg BP Diastolic 72 mmHg 11/19/2018 2:53pm Weight 209.00 lb BP Systolic [...] lb Heart Rate 100 /min BP Systolic 62957 mmHg Respiratory Rate 16 /min Body Temperature [...] 30.8-34.3 Mean Platelet Volume 11.3 fL 8.9-12.4 [place] # 0.45 K/uL 0.3-0.9 [place] % 5.3 % 4.3-13.2 Neut# 6.16 K/uL [...] 10.0 K/uL 3.1-10.7 Comprehensive Metabolic Panel 01/13/2018 N2N/CCD Import Alb/Glob 0.8 ratio Albumin 3.1 g/dL [...] Total Protein 7.2 g/dL 6.4-8.2 Iron-Tibc-%Sat 01/13/2018 N2N/CCD Import Serum Iron 85 g/dL 50-170 Total Iron Binding Capacity 258 g/dL 250-450 Transferrin %Saturation 33 % 12-57 LDL Cholesterol Profile 01/13/2018 N2N/CCD Import Cholesterol 159 mg/dL 19 HDL Cholesterol 45 mg/dL 20 LDL-Cholesterol 47 mg/dL 21 Triglycerides 334 mg/dL High 22 Laboratory test 10/15/2017 N2N/CCD Import Glycohemoglobin 7.6 % High 4.2- 6.3 23, 24 finding (A1c) eAG 171 mg/dL Comprehensive Metabolic Panel 10/15/2017 N2N/CCD Import Alb/Glob 0.7 ratio Albumin 3.1 [...] 7.6 g/dL 6.4-8.2 LDL Cholesterol Profile 10/15/2017 N2N/CCD Import Cholesterol 167 mg/dL 26 HDL Cholesterol 49 mg/dL 27 LDL-Cholesterol 46 mg/dL 28 Triglycerides 360 mg/dL High 29 Microalbumin,Random 10/15/2017 N2N/CCD Import Microalbumin,Urine 39.4 Urine mg/L Laboratory test finding 08/13/2017 N2N/CCD Import Glycohemoglobin (A1c) 7.6 % High 4.2 30, -6. 31 3 eAG 171 mg/dL Comprehensive Metabolic Panel 08/13/2017 N2N/CCD Import Alb/Glob 0.6 ratio Albumin 2.8 g/dL [...] Potassium 4.1 mmol/L 3.5-5.1 SGPT/Alt 40 U/L 78 Sgot/Ast 24 U/L 15-37 Sodium 144 mmol/L 136-145 Total Protein 7.7 g/dL 6.4-8.2 Laboratory test 03/01/2017 N2N/CCD Import Glycohemoglobin 7.4 % High 4.2- 6.3 [...] S Trimethoprim/Sulfamethoxazole >=320 R Urinalysis With 07/25/2016 [facility] Import Source: Urine, Clean Cat 39 Microscopic [...] Urine RBC 0-2 rbc/hpf 0-2 Urine Specific [place] >=1.030 1.01-1.03 Urine Urobilinogen - Dipstick 0.2 E.U./dL 0.2-1 Urine WBC > 50 wbc/hpf High 0-7 Urine Culture 07/25/2016 [facility] Import Quantity 10,000 - 50,000 <See Note > 40 Quantity > 100,000 Cfu/mL 41 Recommended Therapy: Penicillin Or Am <See Note> 42 Urine Culture Beta Streptococc <See Note> Abnormal 43 Urine Culture Escherichia Coli Abnormal 44 Laboratory test 07/19/2016 [facility] Import Glycohemoglobin 9.3 % High 4.2- 6.3 45, 46 finding (A1c) eAG 220 mg/dL CBC 07/19/2016 [facility] Import Hematocrit 34.2 % Low 36-46.1 Hemoglobin [...] K/uL High 3.1-10.7 Comprehensive Metabolic Panel 07/19/2016 N2N/CCD Import Alb/Glob 0.7 ratio Albumin 3.1 [...] for more aggressive treatment of glycemia. The [place] [employer] recommends that a primary goal [...] for more aggressive treatment of glycemia. The [place] [employer] recommends that a primary goal [...] for more aggressive treatment of glycemia. The [place] [employer] recommends that a primary goal [...] for more aggressive treatment of glycemia. The [place] [employer] recommends that a primary goal [...] for more aggressive treatment of glycemia. The [place] [employer] recommends that a primary goal [...] for more aggressive treatment of glycemia. The [place] [employer] recommends that a primary goal of therapy should be a HbA1c of <7% and that physicians should re-evaluate the treatment regimen in patients with HbA1c values consistently >8%. 35 Elevated levels of HbA1c suggest the need for more aggressive treatment of glycemia. The [place] [employer] recommends that a primary goal [...] for more aggressive treatment of glycemia. The [place] [employer] recommends that a primary goal [...] for more aggressive treatment of glycemia. The [place] [employer] recommends that a primary goal [...] (NCEP) Procedures Date Code Description Status 11/13/2018 [id number] Mammogram Completed 03/11/2018 [id number] Diabetic Retinal Eye Exam Completed 11/06/2016 08857 Bone Density Study, Single Photon Absorptiometry Completed 11/06/2016 22678 Mammography Unilateral Completed 11/06/2016 [id number] Mammogram Completed 11/22/2015 [id number] Colonoscopy Completed Encounters Type Date Location Provider Dx Diagnosis Office Visit 11/19/2018 [facility] Trino L20.9 Atopic dermatitis, 2:45p MD Js unspecified M79.642 Pain in left hand Office Visit 11/11/2018 2:00p [facility] Roverto Alvarado79.642 Pain in Care MD left hand L20.9 Atopic dermatitis, unspecified Z12.31 Encntr screen mammogram for malignant neoplasm of breast Office Visit 10/22/2018 1:00p [facility] Trino Weinstein, Z00.01 Encounter for Care general adult medical exam w abnormal findings E11.9 Type 2 diabetes mellitus without complications J44.9 Chronic obstructive pulmonary disease, unspecified K21.9 Gastro-esophageal reflux disease without esophagitis L20.9 Atopic dermatitis, unspecified E78.5 Hyperlipidemia, unspecified I10 Essential (primary) hypertension Z23 Encounter for immunization Plan of Treatment Future Appointment(s):02/19/2019 10:45 am - Trino Weinstein MD at [facility]12/02/2018 - Trino Weinstein MDM25.532 Pain in left wristNew Medication:Wrist Brace Ultra-Lite Carpal Tunnel/One Size - use daily Lt hand
--- NOTE | 2018-12-05 17:58 | UC ---
General HPI - HPI Summary HPI Summary: Per process chemist: "here with --sx started around noon today -nausea but no vomiting, no diarrhea, is having abdominal cramping, chills/ sweats, some shortness of breath" -here w/ her -sx of lower abdomibnal cramping started this afternoon. she had 2 BMs since then that were nml. appetite was fine. ate ravioli and milk and sx worsened thereafter. good relief w/ BMs and pepto bismol. -BSs have been normal AMs in 230s recently. did not check BS w/ sx -she was lightheaded w/ perspiration w/ the abd cramping. 01/09 initially. now resolved. -no CP. - History of Current Complaint Chief Complaint: UCGeneralIllness Stated Complaint: WEAK/CHILLS/DIZZY/FAINT/ACHES Time Seen by Provider: 12/05/18 17:45 Hx Last Menstrual Period: n/a Pain Intensity: 5 - Allergy/Home Medications Allergies/Adverse Reactions: Allergies Allergy/AdvReac Type Severity Reaction Status Date / Time Penicillins AdvReac faint Verified 12/05/18 17:10 pseudoephedrine AdvReac Dizziness Verified 12/05/18 17:10 [From Sudafed] Home Medications: Home Medications Dulaglutide (NF) [Trulicity (NF)] 0.75 mg SUBCUT WEEKLY 12/05/18 [History Confirmed 12/05/18] Ferrous Sulfate TAB* 324 mg PO DAILY 12/05/18 [History Confirmed 12/05/18] Insulin Glargine,Hum.rec.anlog [Lantus Solostar 5x3 ML PENS] 12 unit SQ DAILY [History Confirmed 12/05/18] Irbesartan/Hydrochlor 150/12.5 1 tab PO DAILY 12/05/18 [History Confirmed ] Umeclidinium 62.5 MDI(NF) [Incruse ELLIPTA MDI (NF)] 1 inh INH DAILY 12/05/18 [ History Confirmed 12/05/18] glipiZIDE [Glipizide ER] 5 mg PO DAILY 12/05/18 [History Confirmed 12/05/18] PMH/Surg Hx/FS Hx/Imm Hx Endocrine History: Diabetes Cardiovascular History: Hypertension - Surgical History Surgical History: Yes Surgery Procedure, Year, and Place: brain aneurysm - shunt, 2000 right side. hysterectomy. [place] 10 years ago. appy - Family History Known Family History: Positive: Hypertension - Social History Alcohol Use: None Substance Use Type: None Smoking Status (MU): Former Smoker Type: Cigarettes Have You Smoked in the Last Year: No When Did the Patient Quit Smoking/Using Tobacco: 20 years Household Exposure Type: Cigarettes - Immunization History Most Recent Influenza Vaccination: declines Hx Tetanus, Diphtheria Vaccination: Yes Vaccination Up to Date: Yes Review of Systems All Other Systems Reviewed And Are Negative: Yes Constitutional: Positive: Fatigue - "always" per Skin: Positive: Negative Eyes: Positive: Negative ENT: Positive: Negative Respiratory: Positive: Negative Cardiovascular: Positive: Negative Gastrointestinal: Positive: Abdominal Pain - resolved Genitourinary: Positive: Negative. Negative: Dysuria, Hematuria Motor: Positive: Negative Neurovascular: Positive: Negative Musculoskeletal: Positive: Negative Neurological: Positive: Negative Psychological: Positive: Negative Is Patient Immunocompromised?: No Physical Exam Triage Information Reviewed: Yes Appearance: Well-Appearing, No Pain Distress - lying on stretcher but able to get up on her own. appears chronically deconditioned. poor historian w/ poor insight. Vital Signs: Initial Vital Signs Temp 97.3 F 12/05/18 16:46 Pulse 95 12/05/18 16:46 Resp 24 12/05/18 16:46 BP 117/44 12/05/18 16:46 Pulse Ox 100 12/05/18 16:46 Eye Exam: Normal ENT Exam: Normal ENT: Positive: Pharynx normal, TMs normal. Negative: Nasal congestion Neck exam: Normal Neck: Positive: Supple, Nontender, No Lymphadenopathy Respiratory Exam: Normal Respiratory: Positive: Lungs clear, Normal breath sounds, No respiratory distress, No accessory muscle use. Negative: Crackles, Rhonchi, Stridor, Wheezing Cardiovascular Exam: Normal Cardiovascular: Positive: RRR, Pulses Normal, Brisk Capillary Refill Abdominal Exam: Normal Abdomen Description: Positive: Nontender, Soft, Other: - morbidly obese. Negative: CVA Tenderness (R), CVA Tenderness (L), Distended, Guarding Bowel Sounds: Positive: Present Musculoskeletal Exam: Normal Neurological Exam: Normal Psychological Exam: Normal Skin Exam: Normal Course/Dx - Course Course Of Treatment: EKG: NSR, nml axis, no AV/IV changes, no ST/T changes. no prev -fingerstick ~ 4 hrs post-prandial low 200s. -all sx have resolved. she feels at baseline. does not want to go to ER. she prefers coming here bc she doesnt like the ER. -recommend she go to the ER if she has recurrent abd pain/lightheaded or dizziness -she has been drinking OJ daily since she was told her BS is good at 130. I have discussed with her the importance of diabetic control and to avoid all NSAIDs. -there are no sx when I see her. not dizzy/lightheaded. no cp/sob. - reorts that she "always has abdominal issues" and see's her pcp for this. had neg cologuard recemtly adn prev colonoscopies w/o issues per pt. - Differential Dx - Multi-Symptom Differential Diagnoses: Cardiac Ischemia, Other - abdominal pain - Diagnoses Provider Diagnosis: Abdominal pain Discharge - Sign-Out/Discharge Documenting (check all that apply): Patient Departure All imaging exams completed and their final reports reviewed: No Studies - Discharge Plan Condition: Stable Disposition: HOME Patient Education Materials: Abdominal Pain (ED) Referrals: Trino Weinstein MD [Primary Care Provider] - 4 Days Additional Instructions: You should go to the ER with any recurring symptoms. -You should not be drinking any juices b/c diabetes -you should not take any ibuprofen, aleve, advil or any other meds in this class b/c diabetes and risk of kidney disease. - Billing Disposition and Condition Condition: STABLE Disposition: Home
== END 2018-12-05 18:14 | disposition home or self-care (01) ==
LOC: UCCORT 16:40
DX: R10.30 Lower abdominal pain, unspecified (principal); R06.02 Shortness of breath; R68.83 Chills (without fever); I10 Essential (primary) hypertension; E11.9 Type 2 diabetes mellitus without complications; Z88.0 Allergy status to penicillin; Z88.8 Allergy status to other drugs, medicaments and biological substances; Z79.4 Long term (current) use of insulin; Z79.899 Other long term (current) drug therapy; Z87.891 Personal history of nicotine dependence
CPT/HCPCS: 93005; 99212; G0463

== ENCOUNTER 2023-01-25 11:14 | Observation (INO) ==
[~2023-01-25 11:14] MED LIST: Buffered Lidocaine 1% SYRIN 1 ml INTRADERM ONE; Lactated Ringers 1000 ml BAG 1,000 ML IV SCH; Propofol 10 MG/ML 20 ML BTL ONE
[2023-01-25] MEDS ORDERED: Clindamycin 900 MG/50 **NS BAG 900 MG/50 ML BAG ONE (11:42)
[2023-01-25] MEDS ORDERED: Lidocaine 2% PF 5 ML VIAL ONE (11:44)
[2023-01-25] MEDS ORDERED: fentaNYL 250 mcg/5 ml 50 MCG/ML 5 ml VIAL (250 MCG) ONE (11:45)
[2023-01-25] MEDS ORDERED: Rocuronium 50 mg VIAL 10 mg/ml 5 ml VIAL (50 mg) ONE (11:45)
[2023-01-25 11:59] LABS: Rapid COVID-19 Molecular Undetected (Undetected)
[2023-01-25] MEDS ORDERED: Midazolam 2 mg/2 ml VIAL 1 mg/ml 2 ml VIAL (2 mg) ONE (13:13)
[2023-01-25] MEDS ORDERED: ROPIVACAINE 5 MG/ML 30 ML BTL (0.5%) ONE (13:13)
[2023-01-25] MEDS ORDERED: fentaNYL 100 mcg/2 ml 50 MCG/ML VIAL ONE ×3 (13:13→17:26)
[2023-01-25] MEDS ORDERED: Famotidine IV 10 MG/ML 2 ml VIAL (20 mg) ONE (13:54)
[2023-01-25] MEDS ORDERED: HYDROmorphone 1 MG/1 ML SYRINGE IV PRN (14:02)
[2023-01-25] MEDS ORDERED: Naloxone 0.4 mg VIAL 0.4 mg/ml 1 ml VIAL IV PRN (14:02)
[2023-01-25] MEDS ORDERED: fentaNYL 100 mcg/2 ml 50 MCG/ML VIAL IV PRN (14:02)
[2023-01-25] MEDS ORDERED: ceFAZolin 2 GM in NS PREMIX 2 GM/100 ML BAG IVPB ONE (14:18)
[2023-01-25] MEDS ORDERED: HYDROmorphone 0.5 MG/0.5 ML SYRINGE ONE (14:59)
[2023-01-25] MEDS ORDERED: Tranexamic Acid 1,000 MG in NS 0.9% 50 ML IV ONE (15:00)
[2023-01-25] MEDS ORDERED: Ondansetron ODT 4 mg TAB 4 MG TAB PO PRN (15:03)
[2023-01-25] MEDS ORDERED: Lactulose 30 ml UDC PO PRN (15:03)
[2023-01-25] MEDS ORDERED: Morphine 2 MG/ML SYRINGE IV PRN (15:03)
[2023-01-25] MEDS ORDERED: Ondansetron 4 mg VIAL 2 MG/ML 2 ml VIAL IV PRN (15:03)
[2023-01-25] MEDS ORDERED: Magnesium Hydroxide LIQ 30 ML UDC PO PRN (15:03)
[2023-01-25] MEDS ORDERED: Ondansetron 4 mg VIAL 2 MG/ML 2 ml VIAL ONE (15:04)
[2023-01-25] MEDS ORDERED: Dexamethasone IV 4 MG/ML VIAL 1 ml VIAL ONE (15:04)
[2023-01-25] MEDS ORDERED: Lactated Ringers 1000 ml BAG 1,000 ML IV SCH (16:00)
[2023-01-25] MEDS ORDERED: Albuterol HFA INHALER 8 gm MDI INH PRN (18:14)
[2023-01-25] MEDS ORDERED: Dextrose 50% Syringe 50 ml 25 GM/50 ML SYRINGE IV PUSH PRN (18:16)
[2023-01-25] MEDS ORDERED: Labetalol IV 5 MG/ML 20 ml VIAL IV PUSH PRN (18:30)
[2023-01-25] MEDS: Carboxymethylcellulos 1% OPTH 1 AMP BOTH EYES SCH (21:24)
[2023-01-25] MEDS: Magnesium Hydroxide LIQ 30 ML UDC PO SCH (21:24)
[2023-01-25] MEDS ORDERED: LACTATED RINGERS 1000 ML BAG IV SCH (22:00)
[2023-01-25] MEDS: Clindamycin 600 MG/D5W BAG 600 MG/50 ML BAG IV SCH (23:40)
[2023-01-26] MEDS: Clindamycin 600 MG/D5W BAG 600 MG/50 ML BAG IV SCH ×2 (05:36→13:22)
[2023-01-26 06:23] LABS: Hematocrit 31.3 % (35-45); Hemoglobin 10.7 g/dL (11.5-14.3); Mean Platelet Volume 9.8 fL (7.5-11.2); Platelet Count 161 10^3/uL (150-450)
[2023-01-26 06:46] LABS: Calcium 8.8 mg/dL (8.6-10.3); Creatinine, Serum 1.27 mg/dL (0.51-0.95); Potassium 4.6 mmol/L (3.5-5.0); eGFR CKD-EPI 42.8 (>60)
[2023-01-26] MEDS: Magnesium Hydroxide LIQ 30 ML UDC PO SCH (08:04)
[2023-01-26] MEDS: Carboxymethylcellulos 1% OPTH 1 AMP BOTH EYES SCH (08:05)
[2023-01-26] MEDS ORDERED: Irbesartan/Hydrochlor 150/12.5 TAB PO SCH (09:00)
[2023-01-26] MEDS ORDERED: Insulin GLARGINE 100 un/ml 10 ml VIAL SUBCUT SCH (09:00)
[2023-01-26] MEDS ORDERED: Tiotropium Brom/Olodaterol MDI (ACUTE) INH SCH (09:00)
[2023-01-26] MEDS ORDERED: Vitamin THERAPEUTIC TAB PO SCH (09:00)
[2023-01-26 11:25] VITALS: BP 129/72
== END 2023-01-26 14:30 | disposition home or self-care (01) ==
LOC: SDS 11:14 → SSU 11:14 → EDSTATUS 14:00
PROVIDERS: ADMIT Orthopaedic Surgery Adult Reconstructive Orthopaedic Surgery; ATTEND Orthopaedic Surgery Adult Reconstructive Orthopaedic Surgery